=== PATIENT | male | born 1965 | race African-American/Black ===

== ENCOUNTER 2018-10-25 05:45 | Observation (INO) | payer BC ==
[2018-10-25] MEDS ORDERED: Morphine 4 MG/ML VIAL ONE (06:17)
[2018-10-25] MEDS ORDERED: Ondansetron PF 4 MG/2 ML Vial ONE ×2 (06:18→10:01)
[2018-10-25] MEDS ORDERED: Metoclopramide HCl 10 MG/2 ML VIAL ONE (06:18)
[2018-10-25] MEDS ORDERED: diphenhydrAMINE 50 MG/ML VIAL ONE ×2 (06:18→10:01)
[2018-10-25 06:23] LABS: #Eosinphils 0.1 thou/uL (0.0-0.7); #Lymphocytes 1.6 thou/uL (1.20-3.40); #Monocytes 0.3 thou/uL (0.11-0.59); #Neutrophils 2.9 thou/uL (1.40-6.50); %Basophils 0.5 % (0.0-1.0); %Eosinophils 1.5 % (0.0-10.0); %Lymphocytes 32.6 % (21.0-51.0); %Monocytes 6.5 % (0.0-10.0); Hemoglobin 12.5 g/dL (14.0-18.0); Mean Corpuscular HGB CONC 33.4 g/dL (32.0-36.0); Mean Corpuscular Hemoglobin 31.1 pg (27.0-31.0); Mean Platelet Volume 9.1 fL (7.4-10.4); Platelet Count 188 thou/uL (130-400); RBC Distribution Width 11.4 % (11.5-14.5); Red Blood Cell (RBC) Count 4.02 mill/uL (4.70-6.10); White Blood Cell (WBC) Count 4.9 thou/uL (4.8-10.8)
[2018-10-25 06:43] LABS: ALT (SGPT) 17 U/L (8-55); AST (SGOT) 20 U/L (5-34); Alkaline Phosphatase 43 U/L (40-150); Anion Gap 14 mmol/L (10-20); BUN (Urea Nitrogen) 16 mg/dL (8.4-25.7); Bilirubin, Total 0.6 mg/dL (0.2-1.2); Calc. Creatinine Clearance 0 mL/min (70-130); Calcium 9.9 mg/dL (7.8-10.44); Carbon Dioxide 23 mmol/L (22-29); Chloride 106 mmol/L (98-107); Estimated GFR-MDRD Greater than 90; Globulin 3.4 g/dL (2.4-3.5); Glucose 160 mg/dL (70-105); Lipase 74 U/L (8-78); Potassium 3.9 mmol/L (3.5-5.1); Protein, Total 7.4 g/dL (6.0-8.3); Sodium 139 mmol/L (136-145)
[2018-10-25] MEDS ORDERED: Promethazine HCl 25 MG/ML VIAL ONE (07:30)
--- NOTE | 2018-10-25 07:51 | ULT ---
GALLBLADDER ULTRASOUND: INDICATION: Abdominal pain with nausea and vomiting. FINDINGS: No focal hepatic lesion. There is cholelithiasis along with gallbladder wall thickening and luminal distention. Lovelace's sign is reported as positive. The common duct is nondilated at 4 mm. IMPRESSION: Cholelithiasis and sonographic evidence to indicate acute cholecystitis. Recommend surgical consulta tion. POS: MIGUEL A
--- NOTE | 2018-10-25 08:23 | RAD ---
EXAM: Single view of the chest HISTORY: Abdominal pain with vomiting COMPARISON: None FINDINGS: Single view of the chest shows a normal sized cardiomediastinal silhouette. There is no margoth dence of consolidation, mass, or pleural effusion. The bones are unremarkable. IMPRESSION: No evidence of acute cardiopulmonary disease
[2018-10-25] MEDS ORDERED: Fentanyl 100 MCG/2 ML VIAL SLOW IVP PRN (09:04)
[2018-10-25] MEDS ORDERED: Ondansetron ODT 4 MG TAB SL PRN (09:05)
[2018-10-25] MEDS ORDERED: Ondansetron PF 4 MG/2 ML Vial IVP PRN (09:05)
[2018-10-25] MEDS ORDERED: PROPOFOL 200 MG/20 ML VIAL ONE (10:01)
[2018-10-25] MEDS ORDERED: Ketorolac Tromethamine 30 MG/ML VIAL ONE (10:01)
[2018-10-25] MEDS ORDERED: Lidocaine 1% PF 5 ML VIAL ONE (10:01)
[2018-10-25] MEDS ORDERED: Rocuronium Bromide 10 MG/ML (10ML VIAL) ONE (10:01)
[2018-10-25] MEDS ORDERED: Glycopyrrolate 0.2 MG/ML 5 ML SYRINGE ONE (10:01)
[2018-10-25 10:02] VITALS: BMI 32.9
[2018-10-25] MEDS: Sodium Chloride 0.45% 1,000 ML IV SCH ×2 (10:04→15:43)
[2018-10-25] MEDS ORDERED: Metoprolol Tartrate 100 MG TAB PO SCH (11:00)
[2018-10-25] MEDS ORDERED: HumaLOG 300 UNITS/3 ML VIAL SC PRN (12:02)
[2018-10-25] MEDS ORDERED: Dextrose 50% Abboject 50 ML SYRINGE SLOW IVP PRN (12:02)
[2018-10-25] MEDS ORDERED: Dextrose 5% in Water 1,000 ML IV PRN (12:02)
--- NOTE | 2018-10-25 12:33 | HP ---
CHIEF COMPLAINT: Abdominal pain. HISTORY OF PRESENT ILLNESS: Mr. Camacho is a 53-year-old man, who presented to the emergency room in his local community with sudden onset of severe right upper quadrant abdominal pain, nausea, and vomiting. He had been out for [place] food and had had fried chicken that evening around 9 and had gone to bed feeling okay, but woke up with pain and nausea. He took some Pepto-Bismol, which did not help at all and came into the ER because his symptoms were not getting any better. He has had similar symptoms of much less intensity in the past, which he thought was just related to indigestion. He thought that he just had food poisoning, but in the emergency room he was found to have gallstones and gallbladder wall thickening concerning for cholecystitis. He was sent to [facility] for further evaluation and care. He states that he is still having abdominal pain, although not quite as severe as before, and the nausea and vomiting have abated with medications. PAST MEDICAL HISTORY: Hypertension, diabetes, and hyperlipidemia, all of which are well managed on medications. PAST SURGICAL HISTORY: Cranial surgery for defect as a child. No abdominal surgeries. FAMILY HISTORY: Noncontributory. REVIEW OF SYSTEMS: He had some chills with the onset of his pain. No fever. No jaundice. No diarrhea. No hematemesis or coffee-grounds emesis. MEDICATIONS: Outpatient medications include: 1. Amlodipine 5 mg p.o. daily. 2. Aspirin 81 mg p.o. daily. 3. Fenofibrate 145 mg p.o. daily. 4. Glipizide 5 mg p.o. daily. 5. Hydrochlorothiazide 12.5 mg p.o. daily. 6. Metformin 750 mg p.o. b.i.d. 7. Metoprolol 100 mg p.o. daily. Inpatient medications include: 1. Metoprolol. 2. P.r.n. Zofran and fentanyl. ALLERGIES: HE HAS ALLERGIES TO LISINOPRIL AND PENICILLIN, BOTH OF WHICH CAUSE SWELLING. SOCIAL HISTORY: He does not smoke or use illicit drugs. No history of alcohol abuse. PHYSICAL EXAMINATION: VITAL SIGNS: The patient was afebrile in the emergency room with heart rate of 72, respirations of 18, 99% saturated on room air, and blood pressure of 155/87. GENERAL: Reveals a healthy-appearing man, in no acute distress. HEENT: He has mild facial dysmorphia and a healed craniotomy scar. NECK: Supple without lymphadenopathy or thyroid nodules. HEART: Regular in its rate and rhythm without murmurs, rubs, or gallops. LUNGS: Clear to auscultation bilaterally. He does not have any pain with deep inspiration. He is quite tender to palpation in the right upper quadrant greater than epigastrium. No palpable masses or hernias. No rigidity, rebound, or guarding. EXTREMITIES: Warm and well perfused without edema. NEURO: No focal deficits. PSYCHIATRIC: Alert, oriented, and appropriate. SKIN: No jaundice or icterus. LABORATORY DATA: White count was normal at 4.9, hematocrit 37.4, and platelets 188. Electrolytes were unremarkable. Glucose was 160. LFTs and lipase were normal. IMAGING STUDIES: Abdominal ultrasound showed gallstones with gallbladder wall thickening and a positive sonographic Lovelace sign. Chest x-ray did not show any acute changes. ASSESSMENT AND PLAN: Cholelithiasis and cholecystitis. The patient is still symptomatic. I have recommended laparoscopic cholecystectomy for symptomatic relief. The patient's diagnosis and recommended treatment were discussed in detail with him and his . Inherent risks of surgery were also discussed. These include, but are not limited to, bleeding; infection; risks of anesthesia; damage to nearby structures including bowel, liver, bile duct, and blood vessels; need for open surgery or other procedures. They understand and accept these risks and wished to proceed. He is on the OR schedule for the next available opening and is n.p.o. He got Levaquin in the emergency room early this morning and I will write for sliding scale insulin. Job ID: [id number]
[2018-10-25 13:06] LABS: ALT (SGPT) 20 U/L (8-55); AST (SGOT) 24 U/L (5-34); Alkaline Phosphatase 45 U/L (40-150); Anion Gap 14 mmol/L (10-20); BUN (Urea Nitrogen) 13 mg/dL (8.4-25.7); Bilirubin, Total 0.8 mg/dL (0.2-1.2); Calc. Creatinine Clearance 155 mL/min (70-130); Calcium 9.6 mg/dL (7.8-10.44); Carbon Dioxide 22 mmol/L (22-29); Chloride 106 mmol/L (98-107); Estimated GFR-MDRD Greater than 90; Globulin 3.3 g/dL (2.4-3.5); Glucose 95 mg/dL (70-105); Lipase 30 U/L (8-78); Potassium 4.1 mmol/L (3.5-5.1); Protein, Total 7.3 g/dL (6.0-8.3); Sodium 138 mmol/L (136-145)
[2018-10-25] MEDS ORDERED: Bupivacaine/Epinephrine 0.25% 30 ML VIAL ONE (16:46)
[2018-10-25] MEDS ORDERED: Fentanyl 100 MCG/2 ML VIAL ONE (16:49)
[2018-10-25] MEDS ORDERED: Promethazine HCl 25 MG/ML VIAL IM PRN (18:36)
[2018-10-25] MEDS ORDERED: Meperidine HCl/PF 25 MG/ML VIAL SLOW IVP PRN (18:36)
[2018-10-25] MEDS ORDERED: Ondansetron HCl/PF 4 MG/2 ML Vial IVP PRN (18:36)
[2018-10-25] MEDS ORDERED: Acetaminophen/Codeine 30-300mg Tablet PO PRN (20:50)
[2018-10-25] MEDS ORDERED: Acetaminophen 325 MG TAB PO PRN (20:53)
[2018-10-25] MEDS ORDERED: traMADol HCl 50 MG TAB PO PRN (20:53)
[2018-10-25] MEDS ORDERED: Ibuprofen 200 MG TAB PO PRN (20:54)
--- NOTE | 2018-10-25 21:33 | PDOC.OP ---
Operative Note - Operative Note Operative Note: DATE OF PROCEDURE: 10/25/2018 PROCEDURES: Laparoscopic cholecystectomy. SURGEON: Ebony Kwon M.D. PREOPERATIVE DIAGNOSIS: Cholelithiasis and acute cholecystitis POSTOPERATIVE DIAGNOSIS: Cholelithiasis and acute cholecystitis FINDINGS: Acutely obstructed edematous gallbladder with stone impacted in the neck. Chronic-appearing omental adhesions. HISTORY: Patient with symptoms of biliary colic intermittently for some time at her mild level with sudden onset of severe symptoms last night. Laparoscopic cholecystectomy was recommended for symptomatic relief. Preoperative LFTs were normal and bile duct was normal caliber on preoperative imaging. PROCEDURE: After informed consent was obtained and appropriate preoperative antibiotics were administered, the patient was taken to the operating room and placed in the supine position and general endotracheal anesthesia was administered. The stomach was decompressed with an OG tube and the abdomen was prepped and draped in standard sterile fashion. Local anesthesia was infused to the skin and subcutaneous tissues at the umbilical level. A transverse skin incision was made. The fascia was elevated and a Veress needle was placed into the abdominal cavity without difficulty. Opening pressure was less than 5 and carbon dioxide gas easily insufflated to an intra-abdominal pressure of 15, which the patient tolerated well. The Veress needle was withdrawn and a [place] port advanced under direct vision. The abdominal cavity was carefully examined. There was no evidence of Veress needle or of trocar injury. Local anesthesia was infused to the skin and subcutaneous tissues at the epigastric, right upper quadrant, and right lateral abdominal sites and trocars were placed under direct vision of the laparoscope. The fundus of the gallbladder was too taut to grasp so was aspirated with removal of over 60 mL of clear dark bile. The fundus was then able to be grasped and retracted superiorly. The infundibulum was obscured by omentum. This was grasped and retracted laterally and dissected free of the gallbladder through the avascular plane. The infundibulum was then exposed grasped and retracted laterally. A stone was visible impacted in the neck. The serosa was stripped inferiorly at the level of the neck of the gallbladder exposing the cystic duct and artery which were traced clearly to their insertion in the gallbladder. Critical view of safety was obtained and the cystic duct and artery were clipped and divided between clips. The gallbladder was then dissected free of the gallbladder bed using hook electrocautery. Prior to complete removal of the gallbladder from the gallbladder bed, the area of the cystic duct and artery stumps was examined. The clips were in good position completely across these structures and there was no bleeding and no leakage of bile. The gallbladder was then placed into an EndoCatch bag and drawn out through the epigastric incision. The epigastric trocar was replaced and the operative site easily irrigated to clear. There was no significant bleeding or spillage of bile. The epigastric trocar was removed and the fascia closed under direct laparoscopic vision with a 0 Vicryl suture on a GraNee needle in a [id number] manner with excellent technical result. The right upper quadrant and right lateral abdominal trocars were removed and hemostasis verified. Carbon dioxide gas was allowed to desufflate through the umbilical trocar which was then removed. The skin incisions were closed with 4- 0 subcuticular Monocryl sutures and Dermabond dressings were placed. The patient was extubated and taken to the recovery room in good condition. There were no complications. ESTIMATED BLOOD LOSS: Minimal. SPECIMEN : Gallbladder and contents.
[2018-10-26 07:57] VITALS: TEMP 97.9
[2018-10-26 12:00] VITALS: BP 142/75
== END 2018-10-26 17:07 | disposition home or self-care (01) ==
LOC: ERS 05:45 → SJJU 08:48
PROVIDERS: ADMIT Surgery; ATTEND Surgery
PROC: 0FT44ZZ Resection of Gallbladder, Percutaneous Endoscopic Approach (ICD-10-PCS; principal; 2018-10-25)
DX: K80.01 Calculus of gallbladder with acute cholecystitis with obstruction (principal); I10 Essential (primary) hypertension; E11.9 Type 2 diabetes mellitus without complications; E78.5 Hyperlipidemia, unspecified; Z79.82 Long term (current) use of aspirin; Z79.84 Long term (current) use of oral hypoglycemic drugs; Z79.899 Other long term (current) drug therapy; Z88.0 Allergy status to penicillin; Z88.8 Allergy status to other drugs, medicaments and biological substances
CPT/HCPCS: 36415; 36416; 71045; 76705; 80053; 83690; 85025; 88304; 96361; 96365; 96375; G0378; J0131; J1200; J1885; J1956; J2001; J2270; J2405; J2550; J2704; J2765; J3010